=== PATIENT | male | born 2000 | race Two or more races ===

== ENCOUNTER → 2024-12-11 | Outpatient (CLI) | payer OTHER, SELFPAY ==
--- NOTE | 2024-12-11 12:04 | XR_ITS ---
Examination: Testicular sonography complete TECHNIQUE: Grayscale sonographic images testes, assessment arterial inflow venous outflow Doppler spectral analysis carful analysis Exam date and time: December 11, 2024 1213 hours INDICATIONS: Palpable lump left testicle note is beginning 15 years ago. FINDINGS: Right testis 4.5 cm epididymis 12 mm Arterial flow to the testicle. No testicular mass Left testis 4.3 cm epididymis 22 mm 15 x 19 mm left epididymal cyst Arterial flow testicle. No testicular mass IMPRESSION: Benign left epididymal cyst
--- NOTE | 2024-12-11 12:05 | XR_ITS ---
Examination: Ultrasound soft tissue venous TECHNIQUE: Grayscale sonographic images soft tissue penis Date and time: December 11, 2024 12:20 PM INDICATIONS: Left testicular and penile lump 15 years. FINDINGS: No cystic or solid penile mass noted IMPRESSION: No cystic or solid penile mass noted
== END | disposition home or self-care (01) ==
DX: N50.3 Cyst of epididymis (principal)
CPT/HCPCS: 76705; 76870

== ENCOUNTER 2025-04-01 16:09 | Emergency (ER) | payer OTHER, SELFPAY ==
--- NOTE | 2025-04-01 16:28 | PC.NURSE ---
PT DID NOT WANT TO WAIT SO LEFT AMA.
== END 2025-04-01 16:29 | disposition left against medical advice (07) ==
LOC: SERX 16:32
PROVIDERS: Emergency Provider Emergency Medicine
DX: Z53.21 Procedure and treatment not carried out due to patient leaving prior to being seen by health care provider (principal)
CPT/HCPCS: 99281

== ENCOUNTER 2025-04-01 18:24 | Emergency (ER) | payer OTHER, SELFPAY ==
[2025-04-01 19:00] VITALS: BP 144/87; PULSE 95; RESP 18; TEMP 37.3; O2SAT 99
--- NOTE | 2025-04-01 19:25 | EDNOTE_ITS ---
Nausea/Vomit./Diarrhea-RME/HPI General Chief complaint: General Adult/Misc Complain Stated complaint: HEAT EXHAUSTION PER [employer] Time Seen by Provider: 04/01/25 19:16 Arrival date/time: 04/01/25 18:24 25M with no significant PMH presents to ED with 1 day of N/V, fatigue, and non- bloody diarrhea. 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 Patient has AC in his car. Patient has also had a cough. Limitations: no limitations Related Data Previous Rx's ?Medication ?Instructions ?Recorded ibuprofen 800 mg tablet 800 mg PO TID PRN pain #30 t abs 11/19/19 glycerin (adult) 1 supp MT QDAY PRN constipat ion 02/02/22 #12 ea mineral oil (Fleet Mineral Oil 118 ml MT QDAY PRN cons tipation 02/02/22 enema) #133 mL ondansetron 4 mg disintegrating 4 mg PO Q8H PRN nausea and 04/01/25 tablet vomiting #14 tabs Allergies Allergy/AdvReac Type Severity Reaction Status Date / Time No Known Allergies Allergy Verified 04/01/25 18:26 Review of Systems Review of Systems Systems Reviewed: All systems reviewed, normal except as documented Constitutional Constitutional: Reports system reviewed and no additional complaints, except as documented, Reports as per HPI, Reports fatigue, Denies fever(s) and Denies he adache(s) ENT Ears, Nose, Mouth, and Throat: Denies disequilibrium and Denies headache(s) Cardiovascular Cardiovascular: Reports system reviewed and no additional complaints, except as documented, Denies chest pain and Denies dyspnea Respiratory Respiratory: Reports system reviewed and no additional complaints, except as documented, Reports as per HPI, Reports cough and Denies dyspnea Gastrointestinal Gastrointestinal: Reports system reviewed and no additional complaints, except as documented, Reports as per HPI, Reports abdominal pain, Reports diarrhea, Reports nausea and Reports vomiting Neurologic Neurologic: Reports system reviewed and no additional complaints, except as documented, Denies confusion, Denies disequilibrium and Denies headache(s) Psychiatric Psychiatric: Denies confusion Endocrine Endocrine: Reports fatigue Past Medical History Past Medical History CARDIAC: Negative Cardiac Disorders or Congestive Heart Failure RESPIRATORY: Negative Chronic Obstructive Pulmonary Disease (COPD) or Asthma GENITOURINARY: Negative Renal Disease ENDOCRINE: Negative Diabetes Mellitus Type 1 or Diabetes Mellitus Type 2 HEMATOLOGIC: Negative Sickle Cell Disease Social History SMOKING STATUS: Never smoker ED Exam General Limitations: Present no limitations General appearance: Present alert and in no apparent distress Head Head exam: Present atraumatic Eye Eye exam: Present normal appearance, PERRL and EOMI ENT ENT exam: Present normal exam, normal oropharynx and mucous membranes moist Neck Neck exam: Present normal inspection, full ROM and trachea midline Chest Chest inspection: Present normal inspection and symmetric chest wall rise Respiratory Respiratory exam: Present normal lung sounds bilaterally Cardiovascular Cardiovascular exam: Present regular rate, normal rhythm and normal heart sounds Abdominal Exam Abdominal exam: Present soft and normal bowel sounds Extremities Exam Extremities exam: Present normal inspection and full ROM Back Exam Back exam: Present normal inspection and full ROM Neurological Exam Neurological exam: Present alert, oriented X3 and CN II-XII intact Psychiatric Psychiatric exam: Present normal affect and normal mood Skin Skin exam: Present warm, dry, intact and normal color Course Quality Measures none Orders Category Date Time Status Bedside COVID-19 Antigen Test NOW Care 04/01/25 19:16 Completed Bedside Influenza A&B Antigen Test NOW Care 04/01/25 19:16 Completed Alcohol, Blood Medical Stat Lab 04/01/25 19:57 Completed CBC Stat Lab 04/01/25 19:57 Completed CMP [Comprehensive Metabolic Panel] Stat Lab 04/01/25 19:57 Completed Creatine Kinase Stat Lab 04/01/25 19:57 Completed Drug Screen,Urine Stat Lab 04/01/25 20:36 Completed Lactate (Lactic Acid) Stat Lab 04/01/25 19:57 Completed Procalcitonin Stat Lab 04/01/25 19:57 Completed Urinalysis, C/S if Indicated Stat Lab 04/01/25 20:36 Completed Ondansetron Odt [Zofran Odt] Med 04/01/25 19:26 Discontinued 4 mg PO X1 ONE Vital Signs Vital signs: Vital Signs Temperature 99.2 F 04/01/25 19:00 Pulse Rate 95 04/01/25 19:00 Respiratory Rate 18 04/01/25 19:00 Blood Pressure 144/87 H 04/01/25 19:00 Pulse Oximetry (%) 99 04/01/25 19:00 Oxygen Delivery Method Room Air 04/01/25 19:00 O2 at 99% on RA and WNLs Nausea/Vomiting/Diarrhea MDM Narrative MDM Narrative:: 25M with no significant PMH presents to ED with 1 day of N/V, fatigue, and non- bloody diarrhea. 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 Patient has AC in his car. Patient has also had a cough. Physical exam reveals no ab tenderness. Patient is afebrile, calm, and alert. Normal WOB. Speech normal. Gait normal. Minimal leukocytosis. HgB elevated, likely due to hemoconcentration. CK mildly elevated as well, but CMP unremarkable including normal Cr. No signs of dehydration in UA. Marijuana positive. PO challenge passed. Likely viral gastroenteritis. Patient would like to go back to work on upcoming Monday. Patient data External records reviewed:: [facility] previous records Clinical information provided by:: patient Social determinants that could affect healthcare access:: none Patient has the following chronic illnesses:: none How is presenting disease/condition affected by chronic disease/condition?: no chronic disease Evaluation data The following diagnostics were reviewed and interpreted by me:: lab results Lab and/or radiology exams considered but not ordered:: ordered Interpretation Summary: above Medications / Prescriptions Medications / Prescriptions considered but not ordered:: ordered Medication administrations:: Medication Administration History Discontinued Medications Ondansetron HCl (Ondansetron Odt 4 Mg Tabrap) 4 mg PO X1 ONE; Protocol Stop: 04/01/25 19:27 Last Admin: 04/01/25 19:48 Dose: 4 mg Documented By: OA above Consultations Consultation(s) initiated? (list below): No Diagnosis Nausea Differential Diagnosis: traveler's diarrhea, food poisoning, gastroenteritis, clostridium difficile infection, drug-induced nausea and vomiting and dehydration Most likely diagnosis given after review of the tests above:: gastroenteritis Admission Indicated Admission indicated?: not indicated Admission Request Was there a request for admission?: No Disposition Plan Disposition Plan: Discharge Discharge Attestation Discharge Attestation: The patient and all family members were given an opportunity to ask questions and understood the discharge instructions. Discharge instructions specifically effects, indications for sooner follow up or return to the emergency department, and the expected course of current diagnosis. Patient condition: Stable Discharge Plan Plan Patient Disposition: HOME (Self Care) Discharge Disposition comment: Stable Prescriptions/Referrals Prescriptions/Med Rec: New ondansetron 4 mg tablet,disintegrating 4 mg PO Q8H PRN (Reason: nausea and vomiting) Qty: 14 0RF No Action glycerin (adult) Suppository 1 supp MT QDAY PRN (Reason: constipation) Qty: 12 0RF mineral oil [Fleet Mineral Oil] Enema 118 ml MT QDAY PRN (Reason: constipation) Qty: 133 0RF Rx Instructions: discard any unused portion ibuprofen 800 mg tablet 800 mg PO TID PRN (Reason: pain) Qty: 30 0RF Referrals: No Primary/Family,Physician [Primary Care Provider] - In 1 week Problem List Clinical Impression: Gastroenteritis Patient/Caregiver Discharge Instructions Education Materials: ED Viral Syndrome (Adult) Additional Instructions: Please follow-up with PCP within 24-48 hours and return immediately if symptoms worsen. Stay hydrated. Print Language: Tanzanian Stand Alone Forms: Patient Portal Info Letter MARTELL/DAMON Supervising Physician MARTELL/DAMON Supervising Physician: Dr. Levy
[2025-04-01] MEDS: ONDANSETRON ODT 4 MG TABRAP PO (19:48)
[2025-04-01 20:11] LABS: Lactate (Lactic Acid) 1.2 mMol/L (0.4-2.0)
[2025-04-01 20:15] LABS: Basophils # (Auto) 0.1 Thou/mm3 (0.0-0.2); Basophils % (Auto) 1 % (0-2.5); Eosinophils # (Auto) 0.1 Thou/mm3 (0.0-0.5); Eosinophils % (Auto) 1 % (0-10); Hematocrit 52.3 % (41.0-53.0); Hemoglobin 18.1 g/dL (13.5-16.0); Immature Granulocytes Auto 0.05 Thou/mm3 (0.00-0.00); Lymphocytes # (Auto) 1.5 Thou/mm3 (1.0-4.8); Lymphocytes % (Auto) 13 % (10-50); Mean Corpuscular HGB Conc 34.6 g/dl (31.0-37.0); Mean Corpuscular Hemoglobin 30.3 pg (25.0-35.0); Mean Corpuscular Volume 88 fL (80-100); Monocytes # (Auto) 0.7 Thou/mm3 (0.0-0.8); Monocytes % (Auto) 6 % (0-12); Neutrophils # (Auto) 8.8 Thou/mm3 (1.8-7.7); Neutrophils % (Auto) 79 % (37-80); Nucleated Red Blood Cell # 0.00 Thou/mm3 (0.00-0.00); Nucleated Red Blood Cell % 0 /100 WBC (0); Platelet Count 182 Thou/mm3 (140-440); RDW Standard Deviation 39.2 fL (35.1-43.9); Red Blood Count 5.97 Miln/mm3 (4.50-5.90); White Blood Count 11.2 Thou/mm3 (3.8-10.6)
[2025-04-01 20:20] VITALS: BP 150/82; PULSE 66; RESP 18; TEMP 37.8; O2SAT 96
[2025-04-01 20:49] LABS: Collection Type, Urine Clean Catch; Squamous Epithelial Cell,Urine 0 /hpf (0-5)
[2025-04-01 21:02] LABS: Alanine Aminotransferase 73 U/L (10-49); Albumin, Serum 5.4 gm/dL (3.5-5.0); Albumin/Globulin Ratio 2.3 (1.2-2.2); Alcohol, Blood Medical < 3.0 mg/dL (0-10.0); Alkaline Phosphatase 113 U/L (46-116); Anion Gap 11 (7-16); Aspartate Amino Transferase 46 U/L (0-34); BUN/Creatinine Ratio 11 Ratio (12-20); Bilirubin,Total 0.5 mg/dL (0.3-1.2); Blood Urea Nitrogen 12 mg/dL (9-23); Calcium 10.8 mg/dL (8.3-10.6); Calcium (Corrected) 10.8 mg/dL (8.5-10.1); Carbon Dioxide 27.8 mMol/L (20.0-31.0); Chloride 105 mMol/L (98-107); Creatine Kinase 418 U/L (34-171); Creatinine (Component) 1.1 mg/dL (0.6-1.3); Estimated Creatinine Clearance 108.4 mL/min (>60); Globulin 2.4 gm/dL (2.3-3.5); Glucose 95 mg/dL (74-106); Osmolality,Calculated 286 (275-295); Potassium 4.2 mMol/L (3.4-5.1); Procalcitonin < 0.04 ng/ml (0.0-0.49); Sodium 144 mMol/L (136-145); Total Protein 7.8 gm/dL (5.7-8.2); eGFR > 60 See Note
[2025-04-01 21:10] LABS: Amphetamine/Methamp Scrn,U Negative (Negative); Barbiturate Screen,Urine Negative (Negative); Benzodiazepines Screen,Urine Negative (Negative); Benzoylecgonine Screen, Ur Negative (Negative); Fentanyl Screen,Urine Negative (Negative); Opiate Screen,Urine Negative (Negative); THC Screen,Urine Positive (Negative)
[2025-04-01 21:12] LABS: Bilirubin,Urine Negative (Negative); Blood,Urine Negative (Negative); Clarity,Urine Clear (Clear/Hazy); Color,Urine Yellow (Lt Yel-Yel); Culture Indicated,Urine Not Indicated; Glucose, Urine Negative (Negative); Ketones,Urine Negative (Negative); Leukocyte Esterase,Urine Negative (Negative); Nitrite,Urine Negative (Negative); PH,Urine 7.0 (5.0-7.0); Protein,Urine Negative (Neg - Trace); RBC,Urine < 1 /hpf (0-3); Specific Gravity,Urine 1.027 (1.001-1.035); Urobilinogen,Urine Negative mg/dL (0.0-1.0); WBC,Urine < 1 /hpf (0-5)
== END 2025-04-01 23:20 | disposition home or self-care (01) ==
PROVIDERS: Physician Assistant; Emergency Provider Emergency Medicine
DX: K52.9 Noninfective gastroenteritis and colitis, unspecified (principal)
CPT/HCPCS: 36415; 80053; 80307; 80320; 81001; 82550; 83605; 84145; 85025; 87400; 87811; 99283; Q0162; G0480

== ENCOUNTER 2025-06-02 01:19 | Emergency (ER) | payer SELFPAY ==
[2025-06-02 01:19] VITALS: BMI 26.7
[2025-06-02 01:40] VITALS: BP 138/82; PULSE 89; RESP 16; TEMP 36.8; O2SAT 98
--- NOTE | 2025-06-02 01:42 | XR_ITS ---
Examination: CT brain head without contrast. 2-D sagittal coronal reconstructions Date and time of exam: June 02, 2025, 0205 hours INDICATIONS: Ground-level fall today with injury to the head, head pain CTDI: vol (mGy): 50.1 DLP: (mGycm): 1125 Technique: Multiple CT axial sections of the brain have been obtained, 5 mm slice thickness. Contrast has not been administered. 2-D sagittal, coronal reconstructions have been obtained Low dose protocols were performed. One or more of the following dose reduction techniques were used; automated exposure control, adjustment of the mA and/or KV according to patient size, use of iterative reconstruction technique. Findings: No significant ventricular enlargement. Intra-axial or extra-axial hemorrhage density is not seen. No mass effect or midline shift Basal cisterns are not remarkable. Fourth ventricle is midline. Cranial vault intact. Impression: Negative for acute hemorrhage, mass effect or midline shift
--- NOTE | 2025-06-02 02:16 | PRELIM_ITS ---
CT scan of the head without intravenous contrast (axial sections with sagittal and coronal reformats). June 02, 2025 0203 hours Clinical History: head injury Comparison: None Findings: There is no intracranial hemorrhage, extra-axial collection, mass, mass-effect or midline shift. There is good dawkins-white differentiation. There is no CT evidence of acute large vascular territorial infarct. Ventricles are not enlarged or effaced. Small retrocerebellar arachnoid cyst noted. Visualized paranasal sinuses and tympanomastoid cavities are clear except for left maxillary sinus mucus retention cyst. The bony calvarium is intact. Impression: No intracranial hemorrhage, mass-effect or midline shift. No CT evidence of acute large vascular territorial infarct. Report Electronically Signed By: John Vizcaino 06/02/2025 2:15:44 AM [EST]
--- NOTE | 2025-06-02 03:41 | PD.EDHEAD ---
ED Head Injury RME/HPI General Chief complaint: Wound/Laceration Stated complaint: LACERATION TO BACK OF HEAD Time Seen by Provider: 06/02/25 01:32 Arrival date/time: 06/02/25 01:19 This is a case of 25-year-old male with no medical history came in in the emergency room due to scalp laceration and head injury history of present illness started 1 hour prior to arrival in the emergency [place] his head on the right sustaining a scalp laceration approximately 3 cm patient denies any loss of consciousness denies any headache neck pain no dizziness no blurring of vision Limitations: no limitations Related Data Previous Rx's ?Medication ?Instructions ?Recorded ibuprofen 800 mg tablet 800 mg PO TID PRN pain #30 tabs 11/19/19 glycerin (adult) 1 supp AR QDAY PRN constipation 02/02/22 #12 ea mineral oil (Fleet Mineral Oil 118 ml AR QDAY PRN constipation 02/02/22 enema) #133 mL ondansetron 4 mg disintegrating 4 mg PO Q8H PRN nausea and 04/01/25 tablet vomiting #14 tabs cephalexin 500 mg capsule 500 mg PO TID #30 caps 06/02/25 ibuprofen 600 mg tablet 600 mg PO Q8H PRN pain #20 tabs 06/02/25 mupirocin 2 % topical ointment 1 applic topical BID #22 grams 06/02/25 (Centany) Allergies Allergy/AdvReac Type Severity Reaction Status Date / Time No Known Allergies Allergy Verified 04/01/25 18:26 Review of Systems Review of Systems Systems Reviewed: All systems reviewed, normal except as documented Constitutional Constitutional: Reports system reviewed and no additional complaints, except as documented and Reports as per HPI Eyes Eyes: Reports system reviewed and no additional complaints, except as documented and Reports as per HPI Cardiovascular Cardiovascular: Reports system reviewed and no additional complaints, except as documented and Reports as per HPI Respiratory Respiratory: Reports system reviewed and no additional complaints, except as documented and Reports as per HPI Gastrointestinal Gastrointestinal: Reports system reviewed and no additional complaints, except as documented and Reports as per HPI Musculoskeletal Musculoskeletal: Reports system reviewed and no additional complaints, except as documented and Reports as per HPI Neurologic Neurologic: Reports system reviewed and no additional complaints, except as documented and Reports as per HPI Past Medical History Past Medical History CARDIAC: Negative Cardiac Disorders or Congestive Heart Failure RESPIRATORY: Negative Chronic Obstructive Pulmonary Disease (COPD) or Asthma GENITOURINARY: Negative Renal Disease ENDOCRINE: Negative Diabetes Mellitus Type 1 or Diabetes Mellitus Type 2 HEMATOLOGIC: Negative Sickle Cell Disease Social History SMOKING STATUS: Never smoker ED Exam General Limitations: Present no limitations General appearance: Present alert, in no apparent distress and other Head Head exam: Present atraumatic, normocephalic and other (Noted a 3 cm linear laceration scalp occipital area minimal bleeding no foreign bodies no crepitation no deformity no bone injury no abscess no cellulitis) Eye Eye exam: Present normal appearance, PERRL, EOMI and other (PERRL EOM intact normal conjunctiva no papilledema) ENT ENT exam: Present normal exam, normal oropharynx, mucous membranes moist and other Neck Neck exam: Present normal inspection, full ROM, trachea midline and other (Negative for meningeal sign); Absent tenderness, meningismus, lymphadenopathy or thyromegaly Chest Chest inspection: Present normal inspection and symmetric chest wall rise; Absent tenderness Respiratory Respiratory exam: Present normal lung sounds bilaterally; Absent respiratory distress, wheezes, stridor, accessory muscle use or prolonged expiratory phase Cardiovascular Cardiovascular exam: Present regular rate, normal rhythm and normal heart sounds; Absent bradycardia, tachycardia, irregular rhythm, systolic murmur or diastolic murmur Abdominal Exam Abdominal exam: Present soft and normal bowel sounds; Absent distention, tenderness, guarding, rebound, rigidity, diminished bowel sounds, hyperactive bowel sounds, hypoactive bowel sounds or organomegaly Extremities Exam Extremities exam: Present normal inspection and full ROM Back Exam Back exam: Present normal inspection and full ROM Neurological Exam Neurological exam: Present alert, oriented X3, CN II-XII intact, normal gait, reflexes normal and other (Awake alert oriented x 4 no focal deficit GCS 15/15 steady gait motor or sensory reflex are all normal memory intact no slurring speech no facial droop negative Babinski); Absent motor sensory deficit Psychiatric Psychiatric exam: Present normal affect and normal mood Skin Skin exam: Present warm, dry, intact, normal color and other (Scalp laceration) Course Quality Measures none Orders Category Date Time Status CT head/brain wo con Stat Exams 06/02/25 01:42 Taken Bacitracin Oint pkt Med 06/02/25 03:25 Discontinued 1 gm TOP X1 ONE HYDROcodone*/APAP 5/325 [Renovo 5/325] Med 06/02/25 03:25 Discontinued 1 tab PO X1 ONE cephALEXin [Keflex] Med 06/02/25 03:25 Discontinued 500 mg PO X1 ONE Vital Signs Vital signs: Vital Signs Temperature 98.2 F 06/02/25 01:40 Pulse Rate 89 06/02/25 01:40 Respiratory Rate 16 06/02/25 01:40 Blood Pressure 138/82 H 06/02/25 01:40 Pulse Oximetry (%) 98 06/02/25 01:40 Oxygen Delivery Method Room Air 06/02/25 01:40 Oxygen saturation is 98% in room air PROCEDURES: Laceration Laceration 1: Site: scalp Size (cm): 3 Description: linear Depth: simple, single layer Local Anesthetic: lidocaine 1% Amount of anesthesia used (mL): 4 Pre-repair: wound explored, irrigated extensively and deep structures intact Skin layer closed with: other (Bayard) Number of sutures: 5 Head Injury MDM Narrative MDM Narrative:: This is a case of 25-year-old male with no medical history came in in the emergency room due to scalp laceration and head injury history of present illness started 1 hour prior to arrival in the emergency [place] his head on the right sustaining a scalp laceration approximately 3 cm patient denies any loss of consciousness denies any headache neck pain no dizziness no blurring of vision physical examination patient is awake alert oriented not in distress nontoxic looking well-hydrated well-nourished neurological exam is normal awake alert oriented x 4 no focal deficit GCS 15/15 steady gait memory intact no slurring speech no facial droop motor or sensory reflex were all normal in all extremities CN II to XII is normal negative Babinski patient sustained a 3 cm linear laceration on scalp occipital area minimal bleeding no foreign body no bone injury no abscess no cellulitis the rest of the physical examination neurological exam is normal and unremarkable PERRL EOM intact normal conjunctiva no papilledema laceration repair was performed via loli patient tolerated well the procedure procedure done by [place] protocol and via sterile technique patient will follow-up with PCP in 2 days for reevaluation and for removal of loli in 10 days head injury precaution was discussed with the patient patient will return in the emergency room immediately for any changes of sensorium headache nausea vomiting dizziness blurring of vision etc. or any signs and symptoms of infection redness swelling discharge from the wound pain fever chills patient will return immediately in the emergency room or call 911 patient was prescribed with cephalexin and mupirocin to prevent infection and Motrin for pain patient tetanus shot is up-to-date Patient was discharged with comfortable condition walking with stable gait. Patient verbalized no further complains explained diagnosis and answered patient question. Patient is comfortable with the proposed management plan including the need to follow up with his/her primary care physician and any specialist if applicable Discussed patient for any urgent condition or worsening sx, He/She needed to go to emergency room immediately or call 911. Patient acknowledge the responsibility to follow up as instructed and to monitor her/his symptoms. For any persistence of the symptoms for more than 3-5 days return precaution advised. Discussed the result of the test and was given printed discharge instruction Patient data External records reviewed:: [facility] previous records Clinical information provided by:: patient Social determinants that could affect healthcare access:: none Patient has the following chronic illnesses:: None How is presenting disease/condition affected by chronic disease/condition?: no chronic disease Evaluation data The following diagnostics were reviewed and interpreted by me:: radiology exam(s) Lab and/or radiology exams considered but not ordered:: Reviewed Interpretation Summary: Reviewed Medications / Prescriptions Medications or Prescriptions considered but not ordered:: Given Medication administrations:: Medication Administration History Discontinued Medications Hydrocodone Bitart/Acetaminophen (Hydrocodone/Apap 5/325 Tablet) 1 tab PO X1 ONE Stop: 06/02/25 03:26 Bacitracin (Bacitracin Oint 1 Gm Packet) 1 gm TOP X1 ONE Stop: 06/02/25 03:26 Cephalexin HCl (Cephalexin 250 Mg Capsule) 500 mg PO X1 ONE Stop: 06/02/25 03:26 Given Consultations Consultation(s) initiated? (list below): No Diagnosis Differential diagnosis head injury: concussion without loss of consciousness and closed head injury Most likely diagnosis given after review of the tests above:: Head injury scalp laceration Admission Indicated Admission indicated?: not indicated Explain why admission is indicated or not indicated:: Not indicated Admission Request Was there a request for admission?: No Admission Attestation Admission request attestation: Not indicated Disposition Plan Disposition Plan: Discharge Discharge Attestation Discharge Attestation: The patient and all family members were given an opportunity to ask questions and understood the discharge instructions. Discharge instructions specifically effects, indications for sooner follow up or return to the emergency department, and the expected course of current diagnosis. Patient condition: Stable Discharge Plan Plan Patient Disposition: HOME (Self Care) Patient condition on transfer: Stable Prescriptions/Referrals Prescriptions/Med Rec: New cephalexin 500 mg capsule 500 mg PO TID Qty: 30 0RF mupirocin [Centany] 2 % ointment 1 applic topical BID Qty: 22 0RF ibuprofen 600 mg tablet 600 mg PO Q8H PRN (Reason: pain) Qty: 20 0RF No Action glycerin (adult) Suppository 1 supp AR QDAY PRN (Reason: constipation) Qty: 12 0RF mineral oil [Fleet Mineral Oil] Enema 118 ml AR QDAY PRN (Reason: constipation) Qty: 133 0RF Rx Instructions: discard any unused portion ibuprofen 800 mg tablet 800 mg PO TID PRN (Reason: pain) Qty: 30 0RF ondansetron 4 mg tablet,disintegrating 4 mg PO Q8H PRN (Reason: nausea and vomiting) Qty: 14 0RF Referrals: Tyron Griffith MD [Primary Care Provider, Internal Medicine] - In 1 week Problem List Clinical Impression: Head injury, Laceration of scalp Patient/Caregiver Discharge Instructions Education Materials: ED Head Injury (Adult), ED Laceration Scalp Sutures or ... Additional Instructions: Follow-up with your primary care physician in 2 days for reevaluation and for removal of loli in 10 days worsening symptoms or any emergent concern or any changes of sensorium headache nausea vomiting dizziness blurring of vision numbness weakness tingling sensation memory loss unsteady gait or any signs and symptoms of infection redness swelling discharge from the wound pain fever chills return to the emergency room immediately or call 911 take your medication as directed finish the course of antibiotic keep the wound clean and dry Print Language: Divehi Stand Alone Forms: Zaida Award Info., Patient Portal Info Letter PA/DAMON Supervising Physician PA/DAMON Supervising Physician: Dr. Levy
[2025-06-02 03:50] VITALS: BP 134/90; PULSE 70; RESP 17; TEMP 36.7; O2SAT 100
[2025-06-02] MEDS: HYDROcodone/APAP 5/325 TABLET 1 TAB PO (04:27)
[2025-06-02] MEDS: BACITRACIN OINT 1 GM PACKET TOP (04:28)
== END 2025-06-02 04:32 | disposition home or self-care (01) ==
PROVIDERS: Emergency Provider Emergency Medicine; PCP Student in an Organized Health Care Education/Training Program
DX: S01.01XA Laceration without foreign body of scalp, initial encounter (principal); W19.XXXA Unspecified fall, initial encounter
CPT/HCPCS: 12002; 70450; 99283; A9270

== ENCOUNTER 2025-07-16 01:41 | Emergency (ER) | payer MEDICAID, SELFPAY ==
[2025-07-16 01:44] VITALS: BMI 26.4
--- NOTE | 2025-07-16 01:53 | XR_ITS ---
EXAMINATION: PA lateral chest 2 views TECHNIQUE: Upright PA lateral chest 2 views Date and time: July 11, 2025, 0204 hours, comparison November 19, 2019 INDICATIONS: Headache coughing today. FINDINGS: Normal heart size Lungs are clear. Intact osseous structures IMPRESSION: No active disease
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
[2025-07-16 01:56] VITALS: BP 126/74; PULSE 99; RESP 19; TEMP 36.9; O2SAT 99
[2025-07-16] MEDS: ACETAMINOPHEN 325 MG TABLET 650 MG PO (02:15)
[2025-07-16] MEDS: RINGERS LACTATED 1000 ML 1,000 ML 999 ML IV (02:15)
[2025-07-16] MEDS: METOCLOPRAMIDE 5 MG TABLET PO (02:15)
[2025-07-16] MEDS: KETOROLAC INJ 30 MG/ML VIAL 15 MG IM (02:19)
[2025-07-16 02:21] VITALS: BP 145/87; PULSE 80; TEMP 37; O2SAT 98
[2025-07-16 04:19] VITALS: BP 137/76; PULSE 76; RESP 18; TEMP 37; O2SAT 96
== END 2025-07-16 04:57 | disposition home or self-care (01) ==
PROVIDERS: Emergency Provider Emergency Medicine
DX: R51.9 Headache, unspecified (principal); R09.81 Nasal congestion; R05.9 Cough, unspecified
CPT/HCPCS: 71046; 87502; 87635; 96360; 96372; 99283; J1885; J7120; A9270